=== PATIENT | female | born 1980 | race Two or more races ===

== ENCOUNTER 2018-12-25 19:18 | Emergency (ER) | payer SELFPAY ==
[~2018-12-25] VITALS: Ht 170.2 cm; Wt 75.6 kg
[2018-12-25 19:21] VITALS: BP 94/77
== END 2018-12-25 19:57 | disposition home or self-care (01) ==
LOC: ED 19:51
DX: K08.89 Other specified disorders of teeth and supporting structures (principal)
CPT/HCPCS: 96372; 99283; J1885; J3490

== ENCOUNTER 2018-12-26 17:51 | Emergency (ER) | payer SELFPAY ==
[~2018-12-26] VITALS: Ht 177.8 cm; Wt 76.0 kg
[2018-12-26 18:04] VITALS: BP 158/101
== END 2018-12-26 18:49 | disposition home or self-care (01) ==
LOC: ED 18:00
DX: K04.7 Periapical abscess without sinus (principal); R51 Headache; H92.02 Otalgia, left ear
CPT/HCPCS: 64400; 99284; J3490